=== PATIENT | male | born 1935 | race Caucasian/White ===

== ENCOUNTER 2017-01-18 09:42 | Outpatient (CLI) | payer OTHER | END 2017-01-18 19:17 | disposition home or self-care (01) | LOC: SMI 09:42 | PROVIDERS: ATTEND Psychiatry & Neurology Neurology | DX: G91.9 Hydrocephalus, unspecified (principal); G93.0 Cerebral cysts; R27.0 Ataxia, unspecified; R53.1 Weakness; W19.XXXA Unspecified fall, initial encounter; Y93.89 Activity, other specified; Y92.89 Other specified places as the place of occurrence of the external cause; Y99.8 Other external cause status | CPT/HCPCS: 70551; 72141 ==

== ENCOUNTER 2019-01-09 18:40 | Inpatient (IN) | payer OTHER, MEDICAID ==
[~2019-01-09] VITALS: Ht 167.6 cm; Wt 59.9 kg
[2019-01-09 18:47] VITALS: BP_SYST 141
--- NOTE | 2019-01-09 19:10 | NUR ---
Patient to ER bed 02 to gown for evaluation. Side rails up.
--- NOTE | 2019-01-09 19:15 | NUR ---
Patient brought to ER via ambulance BLS from [facility] for complaint of abnormal labs. Per report, patient's sodium levels have been 129 x2 days and decreased urine output x2 days. Patient is at risk for falls. AOx1. No acute distress noted.
[2019-01-09 19:17] LABS: BASOPHILS # (AUTO) 0.1 K/uL (0.0-0.2); BASOPHILS % (AUTO) 0.9 % (0.0-2.0); EOSINOPHILS # (AUTO) 0.2 K/uL (0.0-0.4); EOSINOPHILS % (AUTO) 3.6 % (0.0-4.0); HEMATOCRIT 41.6 % (36-54); LYMPHOCYTES # (AUTO) 1.9 K/uL (1.0-5.5); LYMPHOCYTES % (AUTO) 27.3 % (20.5-51.5); MEAN CORPUSCULAR HEMOGLOBIN 30 pg (27-31); MEAN CORPUSCULAR HGB CONC 34 % (32-36); MEAN CORPUSCULAR VOLUME 90 fL (79.0-98.0); MONOCYTES # (AUTO) 0.7 K/uL (0.0-1.0); MONOCYTES % (AUTO) 10.7 % (1.7-9.3); NEUTROPHILS # (AUTO) 3.9 K/uL (1.8-7.7); NEUTROPHILS % (AUTO) 57.5 % (40.0-70.0); PLATELET COUNT (AUTO) 293 K/uL (130-430); RED BLOOD CELL COUNT(AUTO) 4.61 MIL/uL (4.2-6.2); RED CELL DISTRIBUTION WIDTH 13.1 % (9.0-15.0); WHITE BLOOD COUNT (AUTO) 6.8 K/uL (4.8-10.8)
--- NOTE | 2019-01-09 19:30 | NUR ---
# 18 gauge angiocath placed to RFA. Use of asceptic technique. Opsite placed over site. Blood return noted. Blood for lab drawn from site. Flushed with 10 cc of normal saline. No evidence of infiltration noted. Patient tolerated well.
--- NOTE | 2019-01-09 19:45 | NUR ---
Patient is unable to participate in end of life decisions making at this time. Per copy of POLST, patient's code status is FULL CODE, copy of POLST placed in chart.
--- NOTE | 2019-01-09 20:02 | NUR ---
ER MD Tamayo at bedside for medical evaluation.
[2019-01-09 20:04] LABS: ANION GAP 6 (5-15); CALCIUM 9.2 mg/dL (8.4-11.0); CHLORIDE 93 mmol/L (98-107); CREATININE 0.72 mg/dL (0.55-1.30); GLUCOSE 100 mg/dL (70-99); POTASSIUM 3.8 mmol/L (3.5-5.1); SODIUM SERUM 128 mmol/L (136-145); UREA NITROGEN, BLOOD 18 mg/dL (8-21)
[2019-01-09] MEDS ORDERED: NACL 0.9% 1,000 ML IV ONE (20:15)
[2019-01-09] MEDS ORDERED: AMLO5TAB4 PO (20:17)
[2019-01-09] MEDS ORDERED: DOCU250C14 PO (20:18)
[2019-01-09] MEDS ORDERED: HYDR12.55 PO (20:19)
[2019-01-09] MEDS ORDERED: LACT1CAP69 PO (20:20)
[2019-01-09] MEDS ORDERED: LOSA50TA3 PO (20:21)
[2019-01-09] MEDS ORDERED: LACT10SO7 PO (20:21)
[2019-01-09] MEDS ORDERED: SODIUM CHLORIDE TAB PO (20:25)
--- NOTE | 2019-01-09 20:30 | NUR ---
IVF infusing with no s/s of infiltration at this time. Will cont to monitor.
--- NOTE | 2019-01-09 20:35 | NUR ---
Patient will be admitted to care of DR. KENYON. Admitted to MED SURG unit. Will go to room 135. Summary report printed. Report will be given at bedside.
--- NOTE | 2019-01-09 21:07 | NUR ---
ADMISSION: The patient, FREDDIE SYED, 83 y/o, M admitted by SALVADOR KENYON MD,with the diagnosis of FLANK PAIN , HYPONATREMIA , WEIGHT LOSS , to room 113 B ,PT is confused , vietnamese speaking .
--- NOTE | 2019-01-09 21:15 | NUR ---
INITIAL NOTE RECEIVED PATIENT AWAKE, ALERT, VERBAL RESPONSIVE BUT SPEAKS ONLY [place]. NO SOB NOTED. DENIES ANY PAIN OR N/V AT THIS TIME. ROOM AIR. INCONTINENT. SKIN INTACT AND NO PERIPHERAL EDEMA NOTED. PATIENT ABLE TO FEED HIMSELF WITH PUDDING AND JELLO. TOLERATING FLUIDS WELL. CARE AND MONITORING WILL BE PROVIDED PER PROTOCOL. CALL LIGHT WITHIN REACH. BED ALARM ON AND AT LOWEST POSITION AT ALL TIMES. ASSESSMENT DONE. NEEDS ATTENDED. KEPT WARM AND COMFORTABLE.
[2019-01-09 21:16] VITALS: BP_SYST 152
[2019-01-09] MEDS: NACL 0.9% 1,000 ML IV SCH (21:46)
--- NOTE | 2019-01-09 21:46 | NUR ---
IVF STARTED IVF STARTED ORDERED. GIVEN PATIENT ANOTHER JELLO AND FINISHED IT. URINE INCONTINENCE. INCONTINENCE CARE DONE. APPLIED BARRIER CREAM. REPOSITIONED. PATIENT TENDS TO LEAN ON HIS LEFT SIDE MORE. KEPT CLEAN, DRY AND COMFORTABLE.
--- NOTE | 2019-01-09 23:30 | NUR ---
RN NOTE PATIENT STILL AWAKE BUT NO COMPLAINTS. REPOSITIONED. KEPT WARM AND COMFORTABLE.
--- NOTE | 2019-01-10 00:35 | NUR ---
CONSULTATION PAGED/CALLED Reason for Consultation: Decreased urine output Person Who was Notified: Theresa Consulting Physician: Tino Dumont Hydroelectric Station Operator Specialty: Urology Ordering Physician: Don
--- NOTE | 2019-01-10 01:10 | NUR ---
RN NOTE PATIENT SLEEPING AT THIS TIME. NO SOB OR GRIMACING NOTED. NPO AFTER MN.
[2019-01-10 01:40] VITALS: BP_SYST 161
[2019-01-10 02:00] VITALS: BP_SYST 148
--- NOTE | 2019-01-10 04:00 | NUR ---
RN NOTE ASLEEP, MOVES OCCASIONALLY. NO DISTRESS NOTED. IVF INFUSING.
[2019-01-10 06:12] LABS: HEMATOCRIT 38.8 % (36-54); HEMOGLOBIN 13.3 g/dL (14.0-18.0); MEAN CORPUSCULAR HEMOGLOBIN 30 pg (27-31); MEAN CORPUSCULAR HGB CONC 34 % (32-36); MEAN CORPUSCULAR VOLUME 89 fL (79.0-98.0); PLATELET COUNT (AUTO) 234 K/uL (130-430); RED BLOOD CELL COUNT(AUTO) 4.37 MIL/uL (4.2-6.2); RED CELL DISTRIBUTION WIDTH 12.7 % (9.0-15.0); WHITE BLOOD COUNT (AUTO) 16.9 K/uL (4.8-10.8)
--- NOTE | 2019-01-10 06:31 | NUR ---
END NOTE AFEBRILE. VS STABLE. NO SOB OR GRIMACING THROUGHOUT THE NIGHT. NPO AFTER MIDNIGHT. CT ABD/PELVISE AND AM LABS TODAY. IVF INFUSING. INCONTINENCE CARE DONE. REPOSITIONED. HEELS OFF BED. CARE AND MONITORING PROVIDED PER PROTOCOL. CALL LIGHT WITHIN REACH. BED ALARM ON AND AT LOWEST POSITION AT ALL TIMES. NEEDS ATTENDED. REPOSITIONED. KEPT WARM AND COMFORTABLE.
[2019-01-10 07:01] LABS: ALANINE AMINOTRANSFERASE 12 U/L (12-78); ALBUMIN 3.1 g/dL (3.4-4.8); ANION GAP 5 (5-15); ASPARTATE AMINOTRANSFERASE 14 U/L (10-37); CALCIUM 8.4 mg/dL (8.4-11.0); CHLORIDE 97 mmol/L (98-107); CHOLESTEROL 146 mg/dL (<200); CREATININE 0.61 mg/dL (0.55-1.30); GLUCOSE 97 mg/dL (70-99); HDL CHOLESTEROL 47 mg/dL (>45); LDL CHOLESTEROL 89 mg/dL (<100); SODIUM SERUM 129 mmol/L (136-145); TOTAL BILIRUBIN 0.6 mg/dL (0.0-1.0); TRIGLYCERIDES 50 mg/dL (30-150); UREA NITROGEN, BLOOD 13 mg/dL (8-21)
[2019-01-10 07:11] LABS: POTASSIUM 2.6 mmol/L (3.5-5.1)
--- NOTE | 2019-01-10 07:28 | NUR ---
OPENING NOTE Patient resting in the bed. No acute distress. Skin warm and dry to touch. IV intact to RFA, no redness, no swelling, no drainage. On NS at 70ml/hr, infusing well. Safety measure maintained. Call light within reached. Bed locked in low position, side rails up, bed alarm on. Will continue to monitor.
[2019-01-10 07:50] VITALS: BP_SYST 126
[2019-01-10] MEDS ORDERED: POTASSIUM CHLORIDE 20 MEQ/PKT PACKET PO ONE (08:15)
--- NOTE | 2019-01-10 08:48 | NUR ---
Nutrition Update Teo Scale 14 noted. Pt admitted for flank pain, hyponatremia, wt loss. Diet: mechanical soft BMI: 21.4 kg/m2 RD to follow per nutrition care standards.
[2019-01-10 08:49] LABS: BAND % (MANUAL) 4 % (0-6); BASOPHILS % (MANUAL) 0 % (0-2); EOSINOPHILS % (MANUAL) 0 % (0-7); LYMPHOCYTES % (MANUAL) 2 % (20-46); MONOCYTES % (MANUAL) 4 % (0-11)
--- NOTE | 2019-01-10 08:50 | NUR ---
CONSULTATION PAGED/CALLED Reason for Consultation: ELEVATED WBC Person Who was Notified: SPOKE WITH CHAO FROM EXCHANGE . Consulting Physician: Tier Truck Driver Specialty: ID Ordering Physician:
[2019-01-10] MEDS: LEVOFLOXACIN 250 MG/D5W 50 ML IV SCH (08:56)
--- NOTE | 2019-01-10 09:49 | NUR ---
NANDINI MALDONADO CALLED BACK Received the call back from Dr. Mayer. Reported the reason for consult is elevated WBC, the WBC=16.9 today and yesterday WBC=6.8. Dr. Mayer stated"will come to see the patient today."
--- NOTE | 2019-01-10 11:00 | NUR ---
ROUND Patient resting in the bed. No acute distress. IV intact, IVF infusing well. Safety measure maintained. Call light within reached. Bed locked in low position, side rails up, bed alarm on. Continue to monitor.
[2019-01-10 11:21] VITALS: BP_SYST 133
[2019-01-10] MEDS: NACL 0.9% 1,000 ML IV SCH (13:35)
[2019-01-10 15:39] VITALS: BP_SYST 132
--- NOTE | 2019-01-10 16:05 | NUR ---
SEEN AND EXAMINED BY DR. ROLAND'S PA YOSHI, ANKUR WITH ORDER RECEIVED Per Ankur patient bladder soft when palpate but CT of abdomen shown full bladder. Reported to Ankur patient void after CT and patient is incontinent. Ankur with order for condom cath to check the output. Order noted and carry out.
--- NOTE | 2019-01-10 18:20 | NUR ---
CLOSING NOTE Patient resting in the bed. No acute distress. Skin warm and dry to touch. IV intact to RFA, no redness, no swelling, no drainage. On NS at 70ml/hr, infusing well. All need met and attended. Safety measure maintained. Call light within reached. Bed locked in low position, side rails up, bed alarm on. Will endorse to night nurse.
--- NOTE | 2019-01-10 19:30 | NUR ---
INITIAL NOTE RECEIVED CARE OF PT. PT IS AWAKE, ALERT, AND IS VERBALLY RESPONSIVE, PT SPEAKS ONLY ERITREAN. BREATHING IS UNLABORED TO ROOM AIR, NO SOB NOTED. DENIES ANY PAIN OR N/V AT THIS TIME. ROOM AIR. ASSISTED RN, JUAN, TO APPLY CONDOM CATHETER FOR URINE OUTPUT MONITORING. SKIN INTACT AND NO PERIPHERAL EDEMA NOTED. IVF ARE INFUSING AT ORDERED RATE. CARE AND MONITORING WILL BE PROVIDED PER PROTOCOL. CALL LIGHT WITHIN REACH. BED ALARM ON AND AT LOWEST POSITION AT ALL TIMES. SIDE RAILS UPX3, CLOSE TO NURSES STATION. ASSESSMENT DONE. NEEDS ATTENDED. WILL MONITOR.
[2019-01-10 20:00] VITALS: BP_SYST 128
--- NOTE | 2019-01-10 21:20 | NUR ---
RN NOTE: PT AWAKE IN BED, CALM AFFECT, NO S/S OF DISTRESS. PT DENIES ANY NEEDS AT THIS TIME. SAFETY PRECAUTIONS REMAIN IN PLACE, CALL LIGHT IS WITH PT. WILL MONITOR.
--- NOTE | 2019-01-10 23:30 | NUR ---
CONDOM CATH REAPPLIED PT REMOVED CONDOM CATHETER. PT EDUCATED REGARDING NEED FOR MONITORING URINE OUTPUT AND NEED FOR CONDOM CATHETER. PT CONFUSED AND DID NOT VERBALIZE UNDERSTANDING. CONDOM CATHETER REAPPLIED, PT TOLERATED WELL. SAFETY MAINTAINED. WILL MONITOR.
--- NOTE | 2019-01-11 | NUR ---
NPO NPO CONE PLACED AT BEDSIDE FOR PROCEDURE. EDUCATED PT ON REASON FOR NPO STATUS.
[2019-01-11 00:13] VITALS: BP_SYST 131
[2019-01-11] MEDS: NACL 0.9% 1,000 ML IV SCH ×2 (01:05→17:13)
--- NOTE | 2019-01-11 02:05 | NUR ---
RN NOTE: PT RESTING IN BED WITH EYES CLOSED. VISIBLE SYMMETRICAL RISE AND FALL OF CHEST TO ROOM AIR, NO SOB NOTED. NO S/S OF ACUTE DISTRESS. NO SIGN OF PAIN OR DISCOMFORT AT THIS TIME. IVF ARE INFUSING AT ORDERED RATE. CONDOM CATHETER IS IN PLACE AND INTACT, DRAINING WELL TO GRAVITY. SAFETY AND FALL PRECAUTIONS OBSERVED. WILL MONITOR.
--- NOTE | 2019-01-11 07:07 | NUR ---
CLOSING NOTE PT RESTING IN BED, NO S/S OF DISTRESS, BREATHING IS UNLABORED TO ROOM AIR. HAVE CALLED PT'S LEGAL GUARDIAN STEVE AT , PHONE RINGS WITH NO ANSWERING MACHINE. HAVE TRIED MULTIPLE TIMES. ALSO TRIED [facility] AT , PHONE ALSO RINGS AND NO ANSWERING MACHINE. WILL ENDORSE TO DAY SHIFT RN TO COMPLETE CONTRAST QUESTIONAIRE AND CONSENT FOR ABDOMEN/PELVIS CT WITH AND WITHOUT CONTRAST. ALL NEEDS MET DURING SHIFT. SAFETY MAINTAINED. WILL ENDORSE TO DAY SHIFT RN.
--- NOTE | 2019-01-11 07:24 | NUR ---
OPENING NOTE Patient resting in the bed. No acute distress. Skin warm and dry to touch. IV intact to RFA, no redness, no swelling, no drainage. On NS at 70ml/hr, infusing well. Condom cath intact, drain gravity with yellow urine. Safety measure maintained. Call light within reached. Bed locked in low position, side rails up, bed alarm on. Will continue to monitor.
[2019-01-11 07:55] VITALS: BP_SYST 144
[2019-01-11] MEDS: LEVOFLOXACIN 250 MG/D5W 50 ML IV SCH (09:00)
--- NOTE | 2019-01-11 10:25 | NUR ---
CONDOM CATH OUT Noted Condom cath out, replaced a new one and connected to drainage bag. Safety measure maintained. Call light within reached. Bed locked in low position, side rails up, bed alarm on. Will continue to monitor.
--- NOTE | 2019-01-11 10:55 | NUR ---
SEEN AND EXAMINED BY NANDINI MALDONADO WITH ORDER RECEIVED.
[2019-01-11 11:17] LABS: BASOPHILS % (AUTO) 0.6 % (0.0-2.0); EOSINOPHILS # (AUTO) 0.1 K/uL (0.0-0.4); EOSINOPHILS % (AUTO) 0.8 % (0.0-4.0); HEMATOCRIT 41.3 % (36-54); HEMOGLOBIN 14.1 g/dL (14.0-18.0); LYMPHOCYTES # (AUTO) 0.9 K/uL (1.0-5.5); LYMPHOCYTES % (AUTO) 13.8 % (20.5-51.5); MEAN CORPUSCULAR HEMOGLOBIN 31 pg (27-31); MEAN CORPUSCULAR HGB CONC 34 % (32-36); MEAN CORPUSCULAR VOLUME 90 fL (79.0-98.0); MONOCYTES # (AUTO) 0.7 K/uL (0.0-1.0); MONOCYTES % (AUTO) 10.1 % (1.7-9.3); NEUTROPHILS # (AUTO) 5.1 K/uL (1.8-7.7); NEUTROPHILS % (AUTO) 74.7 % (40.0-70.0); PLATELET COUNT (AUTO) 193 K/uL (130-430); RED CELL DISTRIBUTION WIDTH 13.1 % (9.0-15.0); WHITE BLOOD COUNT (AUTO) 6.8 K/uL (4.8-10.8)
--- NOTE | 2019-01-11 11:38 | NUR ---
SECOND CALLED THE PUBLIC GUARDIAN REGARDING THE CONSENT FOR CT WITH CONTRAST Left the message of Jennifer Gibbs, case manger of the patient and waited to call back.
[2019-01-11 11:39] LABS: ALANINE AMINOTRANSFERASE 15 U/L (12-78); ALBUMIN 3.1 g/dL (3.4-4.8); ANION GAP 8 (5-15); ASPARTATE AMINOTRANSFERASE 15 U/L (10-37); CALCIUM 8.1 mg/dL (8.4-11.0); CHLORIDE 100 mmol/L (98-107); GLUCOSE 83 mg/dL (70-99); POTASSIUM 3.8 mmol/L (3.5-5.1); SODIUM SERUM 134 mmol/L (136-145); TOTAL BILIRUBIN 0.3 mg/dL (0.0-1.0); UREA NITROGEN, BLOOD 8 mg/dL (8-21)
[2019-01-11 12:45] VITALS: BP_SYST 143
--- NOTE | 2019-01-11 16:10 | NUR ---
CONDOM CATH OUT Noted Condom cath out, replaced a new one and connected to drainage bag. Educated patient not to remove the condom cath, unable due to patient confusion. Safety measure maintained. Call light within reached. Bed locked in low position, side rails up, bed alarm on. Will continue to monitor.
[2019-01-11 16:40] VITALS: BP_SYST 147
--- NOTE | 2019-01-11 16:53 | NUR ---
Dietitian Recommendations * Recommend continuing mechanical soft diet JOSE, RD Please refer to Nutrition Assessment for details. Addendum: 01/11/19 at [address] Amended: Links added. Addendum: 01/11/19 at [address] ENTERED IN ERROR. PLEASE DISREGARD NOTE.
--- NOTE | 2019-01-11 16:55 | NUR ---
CONSENT OF CT ABDOMEN/PELVIS WITH CONTRAST OBTAINED Call public guardian again. Told that I need the consent for the procedure and insurance case manager Jennifer never call back. Able to talk to another public guardian-Breanna Fay and obtain the telephone consent for CT abdomen/pelvis with contrast, witness with MARIANA Dang. Also confirmed the patient's public guardian is Jennifer Najera and not working today.
--- NOTE | 2019-01-11 16:56 | NUR ---
Dietitian Recommendations * Recommend continuing mechanical soft diet * Recommend snacks w/ meals * Recommend encourage increase PO intakes LP, RD Please refer to Nutrition Assessment for details. Addendum: 01/11/19 at [address] Amended: Links added.
[2019-01-11] MEDS ORDERED: IOHEXOL 100 ML IV ONE (17:41)
--- NOTE | 2019-01-11 17:41 | NUR ---
OFF UNIT TO RADIOLOGY DEPT Patient off unit to radiology dept for CT of abdomen/pelvis via bed in stable condition. IV intact, patent. Condom cath intact.
--- NOTE | 2019-01-11 18:06 | NUR ---
BACK TO UNIT FROM RADIOLOGY DEPT VIA BED IN STABLE CONDITION.
--- NOTE | 2019-01-11 18:58 | NUR ---
CLOSING NOTE Patient resting in the bed. No acute distress. Skin warm and dry to touch. IV intact to RFA, no redness, no swelling, no drainage. On NS at 70ml/hr, infusing well. Condom cath intact, drain gravity with yellow urine. All needs met. Safety measure maintained. Call light within reached. Bed locked in low position, side rails up, bed alarm on. Will endorse to night nurse.
[2019-01-11 19:01] LABS: BILIRUBIN,URINE NEGATIVE (NEGATIVE); BLOOD, URINE 2+ (NEGATIVE); CLARITY/URINE HAZY (CLEAR); COLOR,URINE YELLOW (YELLOW); GLUCOSE,URINE NEGATIVE (NEGATIVE); KETONES,URINE NEGATIVE (NEGATIVE); LEUKOCYTE ESTERASE ,URINE 3+ (NEGATIVE); NITRITE, URINE NEGATIVE (NEGATIVE); PH,URINE 7.5 (5.0-8.0); PROTEIN URINE NEGATIVE (NEGATIVE); UROBILINOGEN,URINE 0.2 (0.2-1.0)
--- NOTE | 2019-01-11 19:32 | NUR ---
INITIAL NOTE RECEIVED CARE OF PT. PT IS AWAKE, ALERT, AND IS VERBALLY RESPONSIVE, ARABIC SPEAKING ONLY. BREATHING IS UNLABORED TO ROOM AIR, NO SOB NOTED. PT DENIES ANY PAIN OR N/V AT THIS TIME. CONDOM CATHETER IS INTACT AND DRAINING WELL TO GRAVITY. SKIN INTACT. IVF ARE INFUSING AT ORDERED RATE, NO SIGN OF INFILTRATION AT IV SITE. CARE AND MONITORING WILL BE PROVIDED PER PROTOCOL. CALL LIGHT WITHIN REACH. BED ALARM ON AND AT LOWEST POSITION AT ALL TIMES. SIDE RAILS UPX3, CLOSE TO NURSES STATION. ASSESSMENT DONE. NEEDS ATTENDED. WILL MONITOR.
[2019-01-11 20:00] VITALS: BP_SYST 136
[2019-01-11 20:00] LABS: RBC,URINE 20-50 /HPF (0-3); WBC,URINE 20-50 /HPF (0-3)
[2019-01-11 20:01] LABS: BACTERIA,URINE FEW /HPF (None Seen); MUCUS,URINE None Seen /LPF (None Seen)
--- NOTE | 2019-01-11 23:00 | NUR ---
RN ROUNDS: PT RESTING IN BED, EYES ARE CLOSED, VISIBLE SYMMETRICAL RISE AND FALL OF CHEST TO ROOM AIR. IVF ARE INFUSING ORDERED. NO S/S OF PAIN OR DISCOMFORT. SAFETY PRECAUTIONS ARE IN PLACE: BED IS LOCKED IN LOWEST POSITION, SIDE RAILS UP X3, CALL LIGHT WITH PT, BED ALARM ON, CLOSE TO NURSES STATION. WILL MONITOR.
[2019-01-12 00:55] VITALS: BP_SYST 139
--- NOTE | 2019-01-12 01:10 | NUR ---
SLEEPING PT RESTING IN BED WITH EYES CLOSED. RISE AND FALL OF CHEST BILATERALLY, SOFT SNORE CAN BE HEARD. MOVEMENT NOTED AT INTERVALS. PT APPEARS COMFORTABLE AT THIS TIME. NO S/S OF DISTRESS. SAFETY PRECAUTIONS ARE IN PLACE. WILL MONITOR.
--- NOTE | 2019-01-12 03:34 | NUR ---
RN NOTE: PT RESTING IN BED WITH EYES CLOSED. VISIBLE SYMMETRICAL RISE AND FALL OF CHEST TO ROOM AIR, NO SOB NOTED. NO S/S OF ACUTE DISTRESS. NO SIGN OF PAIN OR DISCOMFORT AT THIS TIME. IVF ARE INFUSING AT ORDERED RATE. SAFETY AND FALL PRECAUTIONS OBSERVED. WILL MONITOR.
--- NOTE | 2019-01-12 05:20 | NUR ---
CONDOM CATH REAPPLIED PT REMOVED CONDOM CATHETER. INCONTINENCE CARE RENDERED WITH ASSISTANCE FROM JATIN GUDINO. CONDOM CATHETER REAPPLIED, PT TOLERATED WELL. PT REPOSITIONED WITH PILLOW SUPPORT. FALL AND SAFETY PRECAUTIONS MAINTAINED. WILL MONITOR.
[2019-01-12] MEDS: NACL 0.9% 1,000 ML IV SCH ×2 (06:02→20:00)
--- NOTE | 2019-01-12 06:31 | NUR ---
CLOSING NOTE PT IS RESTING IN BED. BREATHING IS UNLABORED TO ROOM AIR, NO SOB NOTED. NO SIGN OF PAIN. CONDOM CATHETER IS INTACT AND DRAINING WELL TO GRAVITY. SKIN INTACT. IVF ARE INFUSING AT ORDERED RATE, NO SIGN OF INFILTRATION AT IV SITE. CARE AND MONITORING HAS BE PROVIDED PER PROTOCOL. CALL LIGHT WITHIN REACH. BED ALARM ON AND AT LOWEST POSITION AT ALL TIMES. SIDE RAILS UPX3, CLOSE TO NURSES STATION. ASSESSMENT DONE. ALL NEEDS MET DURING SHIFT. WILL MONITOR UNTIL PT CARE IS ENDORSED TO DAY SHIFT RN.
[2019-01-12 06:48] LABS: BASOPHILS # (AUTO) 0.1 K/uL (0.0-0.2); BASOPHILS % (AUTO) 0.9 % (0.0-2.0); EOSINOPHILS # (AUTO) 0.2 K/uL (0.0-0.4); EOSINOPHILS % (AUTO) 2.8 % (0.0-4.0); HEMATOCRIT 41.5 % (36-54); HEMOGLOBIN 14.4 g/dL (14.0-18.0); LYMPHOCYTES # (AUTO) 1.5 K/uL (1.0-5.5); LYMPHOCYTES % (AUTO) 23.6 % (20.5-51.5); MEAN CORPUSCULAR HEMOGLOBIN 31 pg (27-31); MEAN CORPUSCULAR HGB CONC 35 % (32-36); MEAN CORPUSCULAR VOLUME 89 fL (79.0-98.0); MONOCYTES % (AUTO) 15.4 % (1.7-9.3); NEUTROPHILS # (AUTO) 3.7 K/uL (1.8-7.7); NEUTROPHILS % (AUTO) 57.3 % (40.0-70.0); PLATELET COUNT (AUTO) 188 K/uL (130-430); RED BLOOD CELL COUNT(AUTO) 4.66 MIL/uL (4.2-6.2); RED CELL DISTRIBUTION WIDTH 12.7 % (9.0-15.0); WHITE BLOOD COUNT (AUTO) 6.4 K/uL (4.8-10.8)
--- NOTE | 2019-01-12 07:15 | NUR ---
AM ROUNDS: PATIENT AWAKE DURING ROUNDS.AOX1.RECEIVED REPORT FROM IRIS LUGO NURSE.CONDOM CATH DRAINING TO YELLOW URINE. NO ACUTE DISTRESS. BED LOCKED AT LOWEST POSITION. BED ALARM ON.
[2019-01-12 07:30] VITALS: BP_SYST 159
[2019-01-12 07:51] LABS: ALANINE AMINOTRANSFERASE 18 U/L (12-78); ALBUMIN 3.1 g/dL (3.4-4.8); ANION GAP 10 (5-15); ASPARTATE AMINOTRANSFERASE 17 U/L (10-37); CALCIUM 8.8 mg/dL (8.4-11.0); CHLORIDE 97 mmol/L (98-107); GLUCOSE 73 mg/dL (70-99); POTASSIUM 3.5 mmol/L (3.5-5.1); SODIUM SERUM 131 mmol/L (136-145); TOTAL BILIRUBIN 0.3 mg/dL (0.0-1.0); UREA NITROGEN, BLOOD 10 mg/dL (8-21)
[2019-01-12] MEDS: LEVOFLOXACIN 250 MG/D5W 50 ML IV SCH (08:37)
--- NOTE | 2019-01-12 09:26 | NUR ---
RN ROUNDS: RESTING. NOT IN ANY DISTRESS.
--- NOTE | 2019-01-12 11:52 | NUR ---
RN ROUNDS: NO ACUTE DISTRESS. CONDOM CATHETER INTACT.
[2019-01-12 12:45] VITALS: BP_SYST 174
--- NOTE | 2019-01-12 13:22 | NUR ---
PAGED: CALLED DR KENYON PHONE NUMBER [phone] AND LEFT MESSAGE TO VERIFY HOME MEDICATION.
--- NOTE | 2019-01-12 13:23 | NUR ---
RN ROUNDS: PATIENT RESTING. NOT IN ANY DISTRESS.
--- NOTE | 2019-01-12 14:30 | NUR ---
Case mgt: I returned call to Briana in admissions at [facility] at [phone] (cell) and [phone] facility ph#--she said to call her if pt discharges over the weekend-they still have his bed available--pt is not currently isolation--RIN PEÑA
[2019-01-12 14:31] VITALS: BP_SYST 152
--- NOTE | 2019-01-12 16:20 | NUR ---
RN ROUNDS; RESTING. STABLE.
--- NOTE | 2019-01-12 16:24 | NUR ---
Discharge Planning: [facility] faxed pt referral to [facility] (f [phone] p [phone]) CM to follow up on weekend.3 Addendum: 01/12/19 at 1701 by Denise Gómez DP Per Briana at [facility] (f [phone] p [phone]) patient accepted to room 23. Facility request patient be transferred out no later than 3:00pm, they prefer a morning discharge.
[2019-01-12 16:32] VITALS: BP_SYST 152
--- NOTE | 2019-01-12 17:50 | NUR ---
CONDOM CATH: PATIENT PULLED CONDOM CATHETER PER ODD PIECE CHECKER.
--- NOTE | 2019-01-12 18:23 | NUR ---
END OF SHIFT: WILL ENDORSED TO INCOMING NIGHT NURSE TO PUT A NEW CONDOM CATHETER. NO ACUTE DISTRESS. CALL LIGHT WITH IN REACH. BED LOCKED AT LOWEST POSITION. BED ALARM ON. CONTINUE TO MONITOR.
--- NOTE | 2019-01-12 19:40 | NUR ---
INITIAL NOTE AT INITIAL ASSESSMENT, PATIENT IS RESTING IN BED, STABLE, NO SIGNS OF RESPIRATORY DISTRESS. PATIENT VERBALIZES NO PAIN. PLAN OF CARE FOR THE EVENING IS COMMUNICATED WITH THE PATIENT. PATIENT IS CONFUSED BUT CLOSE TO THE NURSING STATION FOR INCREASED OBSERVATION. BED IS LOCKED, ALARMED, AND AT THE LOWEST SETTING. FALL AND SAFETY PRECAUTIONS WILL BE IN PLACE THROUGHOUT THE SHIFT.
[2019-01-12 20:00] VITALS: BP_SYST 150
--- NOTE | 2019-01-12 21:40 | NUR ---
NOTE PATIENT IS RESTING IN BED, STABLE, NO SIGNS OF RESPIRATORY DISTRESS. CALL LIGHT IS WITHIN REACH. BED IS LOCKED, ALARMED, AND AT THE LOWEST LEVEL.
--- NOTE | 2019-01-12 23:40 | NUR ---
NOTE PATIENT IS SLEEPING, STABLE, NO SIGNS OF RESPIRATORY DISTRESS. BED IS LOCKED, ALARMED, AND AT THE LOWEST LEVEL.
[2019-01-13 00:30] VITALS: BP_SYST 143
--- NOTE | 2019-01-13 01:40 | NUR ---
NOTE PATIENT IS RESTING IN BED, STABLE, NO SIGNS OF RESPIRATORY DISTRESS. BED IS LOCKED, ALARMED, AND AT THE LOWEST LEVEL.
--- NOTE | 2019-01-13 03:40 | NUR ---
NOTE PATIENT IS SLEEPING, STABLE, NO SIGNS OF RESPIRATORY DISTRESS. BED IS LOCKED, ALARMED, AND AT THE LOWEST LEVEL.
--- NOTE | 2019-01-13 05:40 | NUR ---
NOTE PATIENT IS SLEEPING, STABLE, NO SIGNS OF RESPIRATORY DISTRESS. BED IS LOCKED, ALARMED, AND AT THE LOWEST LEVEL.
--- NOTE | 2019-01-13 06:55 | NUR ---
CLOSING NOTE PATIENT REFUSED NEW IV PLACEMENT THROUGHOUT THE NIGHT DESPITE EDUCATIONAL EFFORTS. AT THIS TIME, HE IS RESTING IN BED, STABLE, NO SIGNS OF RESPIRATORY DISTRESS. CALL LIGHT IS PLACED WITHIN REACH. BED IS LOCKED, ALARMED, AND AT THE LOWEST LEVEL. WILL CONTINUE TO MONITOR UNTIL SHIFT REPORT IS GIVEN AT BEDSIDE TO AM NURSE.
[2019-01-13 07:00] LABS: ALANINE AMINOTRANSFERASE 16 U/L (12-78); ANION GAP 7 (5-15); ASPARTATE AMINOTRANSFERASE 14 U/L (10-37); CALCIUM 8.5 mg/dL (8.4-11.0); CHLORIDE 97 mmol/L (98-107); CREATININE 0.66 mg/dL (0.55-1.30); GLUCOSE 83 mg/dL (70-99); POTASSIUM 3.4 mmol/L (3.5-5.1); SODIUM SERUM 129 mmol/L (136-145); TOTAL BILIRUBIN 0.3 mg/dL (0.0-1.0); UREA NITROGEN, BLOOD 10 mg/dL (8-21)
[2019-01-13 07:14] LABS: EOSINOPHILS # (AUTO) 0.2 K/uL (0.0-0.4); LYMPHOCYTES # (AUTO) 1.2 K/uL (1.0-5.5); MEAN CORPUSCULAR HGB CONC 36 % (32-36); MEAN CORPUSCULAR VOLUME 88 fL (79.0-98.0); MONOCYTES # (AUTO) 0.8 K/uL (0.0-1.0)
--- NOTE | 2019-01-13 07:30 | NUR ---
Opening note Patient resting in bed at this time, A/Ox2, no SOB. No complaints of pain. IV patent, intact, and infusing fluids as ordered. No adverse side effects noted. No infiltration noted. On aspiration, and safety precautions, HOB kept elevated, bed alarm on, 3 side rails up, bed in lowest position. Educated patient on the call light system, patient verbalized understanding. Patient in stable condition. Will continue to monitor.
[2019-01-13 07:41] LABS: HEMATOCRIT 38.6 % (36-54); HEMOGLOBIN 13.7 g/dL (14.0-18.0); LYMPHOCYTES % (AUTO) 16.3 % (20.5-51.5); MEAN CORPUSCULAR HEMOGLOBIN 31 pg (27-31); MONOCYTES % (AUTO) 11.4 % (1.7-9.3); NEUTROPHILS % (AUTO) 69.1 % (40.0-70.0); PLATELET COUNT (AUTO) 194 K/uL (130-430); RED CELL DISTRIBUTION WIDTH 13.1 % (9.0-15.0); WHITE BLOOD COUNT (AUTO) 7.2 K/uL (4.8-10.8)
[2019-01-13 07:42] LABS: BASOPHILS # (AUTO) 0.1 K/uL (0.0-0.2); EOSINOPHILS % (AUTO) 2.2 % (0.0-4.0)
[2019-01-13 08:30] VITALS: BP_SYST 147
[2019-01-13] MEDS: LEVOFLOXACIN 250 MG/D5W 50 ML IV SCH (08:52)
--- NOTE | 2019-01-13 09:30 | NUR ---
Medications Morning medication given as ordered. Tolerated well. No adverse side effects noted. Patient in stable condition.
[2019-01-13] MEDS: NACL 0.9% 1,000 ML IV SCH ×2 (10:18→14:21)
--- NOTE | 2019-01-13 11:14 | NUR ---
DC planning: Reviewed case-I do not see consult -MD prog note yet from Dr. Dumont, urology-(consult ordered 01/09/19). I called nurse Patricia-she will call Dr. Dumont-I explained [facility] has a bed and do not want to delay discharge- will f/u for dc planning back to snf-RIN PEÑA
--- NOTE | 2019-01-13 11:30 | NUR ---
Rounds Patient resting in bed, no complaints of pain. Iv patent, intact, and infusing fluids as ordered. no adverse side effects noted. Condom cath draining to gravity, yellow urine noted.
[2019-01-13 11:38] VITALS: BP_SYST 148
--- NOTE | 2019-01-13 11:52 | NUR ---
PAGED PAGED AT [phone] SPOKE WITH JOSH.
--- NOTE | 2019-01-13 13:20 | NUR ---
PAGED PAGED [facility] AT [phone] SPOKE WITH SLIME.
--- NOTE | 2019-01-13 13:30 | NUR ---
UC result Urine culture positive for Poteus Mirabilis ESBL. Dr. Mayer made aware, new orders noted. Patient placed on contact isolation precautions, reason explained to patient. patient unable to verbalize understanding. poor concentration noted. Addendum: 01/13/19 at 1426 by Kye Shirley RN Proteus Mirabilis*
[2019-01-13] MEDS ORDERED: SULFAMETHOXAZOLE/TRIMETHOPR DS 1 TABLET PO ONE (13:45)
--- NOTE | 2019-01-13 14:31 | NUR ---
Case mgt: I rec'd call from nurse Patricia-pt's micro report came back ESBL + for urine--I faxed updated micro and medication list to [facility] and called Briana at SNF--she was made aware pt now requires isolation for ESBL--she gave room 14B--The facility main# [phone] is not working properly, Briana is aware-She will call back with nursing ph# to call report to. [facility] BLS placed on will-call [phone]--RIN PEÑA
--- NOTE | 2019-01-13 14:50 | NUR ---
Case mt: Call report to [phone]-if no answer or general voice mail answers, then call report to [phone] per [facility] once transfer order obtained--I called Jennifer Reinaldo on face sheet at [phone] to notify of pending transfer but phone just rings-no voice mail on that ph#--Transfer packet updated with micro and med list at nursing station-RIN PEÑA
--- NOTE | 2019-01-13 15:00 | NUR ---
Rounds Patient sitting up in bed at this time, no complaints of pain. No SOB. Iv patent, intact and infusing as ordered. No adverse side effects. Condom catheter draining to gravity, good urine output noted.
[2019-01-13 15:09] VITALS: BP_SYST 152
--- NOTE | 2019-01-13 15:49 | NUR ---
Rec'd transfer order to [facility]--[facility] BLS to [facility] pt at 6:00pm tonight--nurse Harshad wade. RN
[2019-01-13 16:33] VITALS: BP_SYST 149
[2019-01-13] MEDS ORDERED: SULF1TAB48 PO (16:53)
--- NOTE | 2019-01-13 17:00 | NUR ---
Unable to reach responsible constitution party Unable to notify family of discharge at this time, called em x4, no answer left voicemail, awaiting call back.
--- NOTE | 2019-01-13 17:07 | NUR ---
[facility] CALLED CALLED [facility] AT SPOKE WITH EDGARD TO PUT AMBULANCE ON WILL CALL.
--- NOTE | 2019-01-13 17:15 | NUR ---
Rounds Notified patient of transfer back to [facility], patient unable to verbalize understanding. patient in stable condition.
--- NOTE | 2019-01-13 18:33 | NUR ---
PT TRANSFERRED Report given to Angelica at [facility]. Transfer packet with Transfer Orders and Medication Reconciliation form given to EMT with report. Exitcare provided. [facility] ID band removed, replaced with ID band with pt's name and .IV catheter removed, intact and dressing applied, no active bleeding. condom catheter removed. All belongings sent with patient. Patient left floor via gurney escorted by EMT in no distress.
[2019-01-13] MEDS ORDERED: SULFAMETHOXAZOLE/TRIMETHOPR DS 1 TABLET PO SCH (21:00)
== END 2019-01-13 18:43 | DRG 871 ==
LOC: SED 18:40 → SMU 20:27
PROVIDERS: ADMIT Internal Medicine; ATTEND Internal Medicine
DX: A41.9 Sepsis, unspecified organism (principal); J69.0 Pneumonitis due to inhalation of food and vomit; E87.1 Hypo-osmolality and hyponatremia; N39.0 Urinary tract infection, site not specified; F03.90 Unspecified dementia, unspecified severity, without behavioral disturbance, psychotic disturbance, mood disturbance, and anxiety; I11.9 Hypertensive heart disease without heart failure; I48.91 Unspecified atrial fibrillation; K76.9 Liver disease, unspecified; N28.9 Disorder of kidney and ureter, unspecified; N35.919 Unspecified urethral stricture, male, unspecified site; N40.1 Benign prostatic hyperplasia with lower urinary tract symptoms; R33.8 Other retention of urine; Z74.01 Bed confinement status
CPT/HCPCS: 36415; 71045; 74160-TC; 80048; 80053; 80061; 81000-TC; 85007; 85025; 85027; 87040-TC; 87081; 87086; 87186-TC; 93005; 96360; 99285; J1956; J7030; Q9967

== ENCOUNTER 2019-02-01 18:41 | Inpatient (IN) | payer OTHER, MEDICAID ==
[~2019-02-01] VITALS: Ht 175.3 cm; Wt 61.2 kg
[~2019-02-01 18:41] MED LIST: AMLO5TAB4 PO; DOCU250C14 PO; HYDR12.55 PO; LACT10SO7 PO; LACT1CAP69 PO; LOSA50TA3 PO; SODIUM CHLORIDE TAB PO; SULF1TAB48 PO
[2019-02-01 18:44] VITALS: BP_SYST 146
--- NOTE | 2019-02-01 18:48 | NUR ---
Patient to ER bed 05 to gown for evaluation. Side rails up.
--- NOTE | 2019-02-01 18:57 | NUR ---
pt arrives from [facility]. S/p fall. Pt ia AAO x 3. Rob any pain. No visible head injuries noted. According to [facility] staff, pt ambulated to the restroom and fell in the restroom.
--- NOTE | 2019-02-01 18:58 | NUR ---
ER at bedside examining patient.
--- NOTE | 2019-02-01 19:06 | NUR ---
Care endorsed to Cheryl PEÑA. Pt remains in stable condition.
--- NOTE | 2019-02-01 19:09 | NUR ---
Medication reconciliation completed with information provided by medical record. Any prior medication reconciliation on file was reviewed and corrected.
--- NOTE | 2019-02-01 19:20 | NUR ---
Pt went to CT scan via [facility]. Tolerated well. Will cont. to monitor.
--- NOTE | 2019-02-01 19:31 | NUR ---
Pt moved to bed 04
[2019-02-01 20:26] LABS: BASOPHILS # (AUTO) 0.1 K/uL (0.0-0.2); BASOPHILS % (AUTO) 0.8 % (0.0-2.0); EOSINOPHILS # (AUTO) 0.1 K/uL (0.0-0.4); EOSINOPHILS % (AUTO) 2.3 % (0.0-4.0); HEMATOCRIT 41.4 % (36-54); HEMOGLOBIN 14.3 g/dL (14.0-18.0); LYMPHOCYTES # (AUTO) 1.6 K/uL (1.0-5.5); LYMPHOCYTES % (AUTO) 24.7 % (20.5-51.5); MEAN CORPUSCULAR HEMOGLOBIN 31 pg (27-31); MEAN CORPUSCULAR HGB CONC 35 % (32-36); MEAN CORPUSCULAR VOLUME 89 fL (79.0-98.0); MONOCYTES # (AUTO) 0.7 K/uL (0.0-1.0); MONOCYTES % (AUTO) 10.7 % (1.7-9.3); NEUTROPHILS # (AUTO) 3.9 K/uL (1.8-7.7); NEUTROPHILS % (AUTO) 61.5 % (40.0-70.0); PLATELET COUNT (AUTO) 363 K/uL (130-430); RED BLOOD CELL COUNT(AUTO) 4.65 MIL/uL (4.2-6.2); RED CELL DISTRIBUTION WIDTH 12.9 % (9.0-15.0); WHITE BLOOD COUNT (AUTO) 6.3 K/uL (4.8-10.8)
[2019-02-01 20:43] LABS: ANION GAP 7 (5-15); CALCIUM 9.2 mg/dL (8.4-11.0); CHLORIDE 95 mmol/L (98-107); GLUCOSE 91 mg/dL (70-99); POTASSIUM 3.6 mmol/L (3.5-5.1); SODIUM SERUM 130 mmol/L (136-145); UREA NITROGEN, BLOOD 16 mg/dL (8-21)
[2019-02-01 20:49] LABS: PROTHROMBIN TIME 10.4 SECS (9.5-12.5)
[2019-02-01 20:57] LABS: ALANINE AMINOTRANSFERASE 14 U/L (12-78); ALBUMIN 3.5 g/dL (3.4-4.8); ASPARTATE AMINOTRANSFERASE 12 U/L (10-37); THYROID STIMULATING HORMONE 1.27 uIu/mL (0.36-3.74); TOTAL BILIRUBIN 0.3 mg/dL (0.0-1.0)
--- NOTE | 2019-02-01 22:30 | NUR ---
PT pulled out IV twice. Started new IV on RAC.
--- NOTE | 2019-02-01 22:52 | NUR ---
ADMISSION NOTES RECEIVED PATIENT FROM ER 83 Y/O MALE FOR SYNCOPE AND HEAD TRAUMA. PATIENT ORIENTED TO ROOM ,CALL LIGHT SYSTEM, BED CONTROLS. BED IN LOWEST LOCKED POSITION WITH ALARM ON. CALL LIGHT WITH IN REACH.
--- NOTE | 2019-02-01 22:52 | NUR ---
Transfer to Tele via ACLS protocol. Licensed nurse present. IV present no signs or symptoms of infiltration.
[2019-02-01 23:01] VITALS: BP_SYST 142
[2019-02-01 23:06] LABS: BILIRUBIN,URINE NEGATIVE (NEGATIVE); BLOOD, URINE 3+ (NEGATIVE); CLARITY/URINE CLEAR (CLEAR); COLOR,URINE YELLOW (YELLOW); GLUCOSE,URINE NEGATIVE (NEGATIVE); KETONES,URINE NEGATIVE (NEGATIVE); LEUKOCYTE ESTERASE ,URINE 3+ (NEGATIVE); NITRITE, URINE POSITIVE (NEGATIVE); PH,URINE 7.5 (5.0-8.0); PROTEIN URINE NEGATIVE (NEGATIVE); UROBILINOGEN,URINE 0.2 (0.2-1.0)
--- NOTE | 2019-02-01 23:12 | NUR ---
PAGED DOCTOR PAGED DOCTOR KENYON.
--- NOTE | 2019-02-01 23:15 | NUR ---
PHONED PAGED DR CHANTALE SANCHEZ , FOR DIET CLARIFICATION .
[2019-02-01 23:18] LABS: BACTERIA,URINE MANY /HPF (None Seen); RBC,URINE 20-50 /HPF (0-3); WBC,URINE 20-50 /HPF (0-3)
[2019-02-01] MEDS: NORMAL SALINE 5 ML DISP.SYRIN IVF SCH (23:23)
[2019-02-02] VITALS: BP_SYST 136
--- NOTE | 2019-02-02 00:03 | NUR ---
FALL RISK MEASURES PATIENT HAS HISTORY OF FALLS AT HOME , BED ALARM IS ON FREQUENT MONITOR ROUNDING IMPLEMENTED & EFFECTIVE .
--- NOTE | 2019-02-02 02:12 | NUR ---
CONSULTATION PAGED/CALLED Reason for Consultation: SYNCOPE Person Who was Notified: CANDI Consulting Physician: Subha MARCUS Battery Filler Specialty: Ordering Physician: CHANTALE
--- NOTE | 2019-02-02 02:13 | NUR ---
CONSULTATION PAGED/CALLED Reason for Consultation: SYNOPE Person Who was Notified:ENRICO Consulting Physician: Landon HAWKINS Store Sales Leader Specialty: Ordering Physician: CHANTALE
--- NOTE | 2019-02-02 03:57 | NUR ---
hourly rounding patient Resting HOB elevated fall measures implemented bed to low position patient verbally Responsive .
[2019-02-02] MEDS: NORMAL SALINE 5 ML DISP.SYRIN IVF SCH ×3 (06:23→21:15)
[2019-02-02 07:21] LABS: BASOPHILS # (AUTO) 0.1 K/uL (0.0-0.2); BASOPHILS % (AUTO) 0.7 % (0.0-2.0); EOSINOPHILS # (AUTO) 0.2 K/uL (0.0-0.4); EOSINOPHILS % (AUTO) 1.4 % (0.0-4.0); HEMATOCRIT 40.6 % (36-54); HEMOGLOBIN 14.1 g/dL (14.0-18.0); LYMPHOCYTES # (AUTO) 0.6 K/uL (1.0-5.5); LYMPHOCYTES % (AUTO) 4.3 % (20.5-51.5); MEAN CORPUSCULAR HEMOGLOBIN 31 pg (27-31); MEAN CORPUSCULAR HGB CONC 35 % (32-36); MEAN CORPUSCULAR VOLUME 89 fL (79.0-98.0); MONOCYTES # (AUTO) 0.4 K/uL (0.0-1.0); MONOCYTES % (AUTO) 2.9 % (1.7-9.3); NEUTROPHILS # (AUTO) 11.8 K/uL (1.8-7.7); NEUTROPHILS % (AUTO) 90.7 % (40.0-70.0); PLATELET COUNT (AUTO) 347 K/uL (130-430); RED BLOOD CELL COUNT(AUTO) 4.59 MIL/uL (4.2-6.2); RED CELL DISTRIBUTION WIDTH 12.9 % (9.0-15.0); WHITE BLOOD COUNT (AUTO) 13.1 K/uL (4.8-10.8)
[2019-02-02 07:51] LABS: ANION GAP 11 (5-15); CALCIUM 8.9 mg/dL (8.4-11.0); CHLORIDE 98 mmol/L (98-107); CREATININE 0.58 mg/dL (0.55-1.30); GLUCOSE 69 mg/dL (70-99); POTASSIUM 3.4 mmol/L (3.5-5.1); SODIUM SERUM 132 mmol/L (136-145); UREA NITROGEN, BLOOD 15 mg/dL (8-21)
[2019-02-02 08:31] VITALS: BP_SYST 136
[2019-02-02 08:33] VITALS: BP_SYST 136
--- NOTE | 2019-02-02 09:45 | NUR ---
Nutrition Update Teo Scale 15 noted. Pt admitted for syncope, head trauma Diet: regular, soft BMI: 19.9 kg/m2 RD to follow per nutrition care standards.
[2019-02-02 11:24] VITALS: BP_SYST 129
--- NOTE | 2019-02-02 12:51 | NUR ---
received pt, resting comfortably in his bed. bed alarm on. no falls. pt with reported unpredictability overnight r/t pulling out several iv lines. pt is now compliant with poc and has not attempted to rise form bed nor has he pulled his current iv line, will cont to monitor. pt with no pain, no sob, vitals stable, afebrile. on tele. no n/v/d. awaiting md to assess pt and for orders, spoke with hospitalist who saw pt this am and alerted him to no home meds activated yet. thus no meds given this am, although home medications are updated in the EMR. MD spoke with RN about ordering an ECHO today, awaiting order to be placed and will call to schedule. pt fabrice his diet wdl.
--- NOTE | 2019-02-02 13:10 | NUR ---
pt with reported incontinence, however pt alerted RN to his need to use the toilet today. thus bedpan placed and pt utilized wdl. no falls, no attempts to pull line nor to rise form bed unassisted. pt calm and cooperative with poc, uzbek speaking. awaiting ECHO for today and still awaiting meds to be reconciled and activated for hospital use. will cont to monitor. currently sitting up in bed eating lunch, poor appetite, no s/s of coughing nor choking when eating.
[2019-02-02 16:01] VITALS: BP_SYST 139
--- NOTE | 2019-02-02 16:50 | NUR ---
PT ALERT AND CALM IN BED, FOLLOWING TURNING. NO ACUTE NEURO CHANGES TODAY. MALTESE SPEAKING. PT WITH EPISODE OF URINE INCONTINENCE THIS AFTERNOON. PT HAD ECHO COMPLETED AT BEDSIDE PER ORDERS,PENDING REPORT. NO PAIN REPORTED BY PT, DENIES CHEST PAIN, NO N/V/D, NO FALLS, PT HAS NOT BEEN IMPULSIVE NOR TRIED TO RISE FROM BED WITHOUT ASSIST. PT WITH STABLE VITAL SIGNS, AFEBRILE. AMPARO HIS LUNCH WDL. WILL CONT TO MONITOR AND ENDORSE PLAN (CT BRAIN TOMORROW? -- PER MD NOTE, NO ORDER YET PLACED) TO NOC RN AT TRANSFER OF CARE/END OF SHIFT.
--- NOTE | 2019-02-02 18:28 | NUR ---
PT ALERT AND ORIENTED X 2, INTERMITTENT CONFUSION R/T TAKING HIS TELE MONITOR OFF AND RN REPLACING X 3 THIS AFTERNOON. NOW HE IS SITTING UP IN BED IN NO DISTRESS EATING DINNER. WILL ENDORSE PLAN TO NOC RN. PT VSS AFEBRILE, NO CHANGES NEUROLOGICALLY TODAY. HE HAS LEFT HIS IV IN PLACE TODAY.
[2019-02-02 21:00] VITALS: BP_SYST 135
--- NOTE | 2019-02-02 22:15 | NUR ---
ASSIST PATIENT TO SIT UP IN BED SIPS OF WATER GIVEN UP RIGHT POSITION TOLERATED NO S/SX OF ASPIRATION RESPIRATIONS REGULAR ALSO UNLABORED .
--- NOTE | 2019-02-03 | NUR ---
Neurovascular checks noted general weakness to both upper & lower extremities motor movement is equal to both left & right hand strength FALL measures in place patient has History of falls , continue to monitor .
[2019-02-03 01:55] VITALS: BP_SYST 147
--- NOTE | 2019-02-03 04:18 | NUR ---
Hourly Rounding patient awake on and off HOB elevated verbally Responsive FALL precautions implemented call ramirez use explained to patient bed to low position .
--- NOTE | 2019-02-03 04:26 | NUR ---
Turning & Repositioning on schedule off loading with pillows tolerated kept clean & dry as needed skin dry warm chest movement symmetrical unlabored .
[2019-02-03] MEDS: NORMAL SALINE 5 ML DISP.SYRIN IVF SCH ×3 (06:17→20:16)
[2019-02-03 08:05] VITALS: BP_SYST 125
--- NOTE | 2019-02-03 08:05 | NUR ---
INITIAL ROUNDS Received pt AAOx1, non-verbal, no s/s resp distress, no c/o pain or discomfort. Neuro checks done. Plan of care for the day reviewed with pt-pt just stared at this copy writer. Pain management, skin and safety discussed-pt just stared at this copy writer. Will reinforce all teachings. Bed alarm, side rails up x3, room close to nursing station for safety. Aspiration and skin precautions in place. Call light within reach.
--- NOTE | 2019-02-03 09:58 | NUR ---
ROUNDS Pt resting quietly in bed with no s/s resp distress, no c/o pain or discomfort. pt repositioned with pillow support. All precautions remain in place.
[2019-02-03 11:21] VITALS: BP_SYST 140
--- NOTE | 2019-02-03 12:00 | NUR ---
ROUNDS Pt resting quietly in bed with no s/s resp distress, no c/o pain or discomfort. No changes. All precautions remain in place.
--- NOTE | 2019-02-03 15:25 | NUR ---
UA/MD Dr. Ochoa called and informed of +UA 02/01/19, orders for antibiotics given. also informed of pt's medication reconciliation.
[2019-02-03 15:26] VITALS: BP_SYST 134
[2019-02-03] MEDS ORDERED: amLODIPine BESYLATE 5 MG TABLET PO ONE (15:45)
[2019-02-03] MEDS ORDERED: HYDROCHLOROTHIAZIDE 12.5 MG CAPSULE (HCTZ) PO ONE (15:45)
[2019-02-03] MEDS ORDERED: LOSARTAN POTASSIUM 50 MG TABLET (COZAAR) PO ONE (15:45)
[2019-02-03] MEDS ORDERED: LACTULOSE 20 GM/30 ML UDC PO PRN (16:00)
[2019-02-03] MEDS: LEVOFLOXACIN 250 MG/D5W 50 ML IV SCH (16:32)
--- NOTE | 2019-02-03 16:45 | NUR ---
ROUNDS Pt resting quietly in bed with no s/s resp distress, no c/o pain or discomfort. Levaquin infusing well to RAC at ordered rate with no s/s infiltration to site. All precautions remain in place. Call light within reach.
--- NOTE | 2019-02-03 18:24 | NUR ---
CLOSING NOTE Pt resting quietly in bed with no s/s resp distress, no c/o pain or discomfort. Pt fed himself dinner and gave me a nice big smile. Needs met, call light within reach.
--- NOTE | 2019-02-03 19:10 | NUR ---
OPENING NOTE Bedside report received from dayshift nurse. Patient received lying in bed, awake, no s/s of acute distress noted. Breathing even and unlabored. IV site patent, no signs of infiltration or infection noted. HOB raised. Call light with patient. Bed alarm on. Bed locked and at lowest position. Will continue to monitor.
[2019-02-03 20:00] VITALS: BP_SYST 122
[2019-02-03] MEDS: DOCUSATE SODIUM 250 MG CAPSULE PO SCH (20:16)
--- NOTE | 2019-02-03 21:00 | NUR ---
ROUNDS Patient in bed, no signs of discomfort noted. Chest rise and fall even bilaterally. Soft wrist restraints in place, no signs of injuries noted. IVF infusing well. SCDs attached and operating. All needs met. Call light with patient. Bed alarm on. Will continue to monitor.
--- NOTE | 2019-02-03 21:28 | NUR ---
CONSULTATION PAGED/CALLED Reason for Consultation: UTI Person Who was Notified: [facility] Consulting Physician: NANDINI MALDONADO Ordering Physician: DR. KENYON
--- NOTE | 2019-02-03 23:00 | NUR ---
ROUNDS Patient sleeping at this time. No s/s of acute distress noted. Breathing even and unlabored. Call light with patient. Bed alarm on. Will continue to monitor.
[2019-02-04 00:44] VITALS: BP_SYST 128
--- NOTE | 2019-02-04 01:00 | NUR ---
ROUNDS Patient sleeping. No signs of discomfort noted. Chest rise and fall even bilaterally. Call light with patient. Bed alarm on. Will continue to monitor.
--- NOTE | 2019-02-04 03:00 | NUR ---
ROUNDS Patient in bed, asleep. No s/s of acute distress noted. Breathing even and unlabored. Call light with patient. Bed alarm on. Will continue to monitor.
--- NOTE | 2019-02-04 05:00 | NUR ---
ROUNDS Patient in bed sleeping. No signs of discomfort noted. Chest rise and fall even bilaterally. Call light with patient. Bed alarm on. Will continue to monitor.
[2019-02-04] MEDS: NORMAL SALINE 5 ML DISP.SYRIN IVF SCH ×3 (05:15→21:53)
--- NOTE | 2019-02-04 06:27 | NUR ---
CLOSING NOTES Patient sleeping. No s/s of acute distress noted. Breathing even and unlabored. IV site patent, no signs of infiltration or infection noted. All needs met throughout shift. Fall and safety precautions maintained throughout shift. Will continue to monitor until patient care is endorsed to oncoming dayshift nurse.
[2019-02-04 07:29] LABS: BASOPHILS # (AUTO) 0.1 K/uL (0.0-0.2); BASOPHILS % (AUTO) 1.1 % (0.0-2.0); EOSINOPHILS # (AUTO) 0.1 K/uL (0.0-0.4); EOSINOPHILS % (AUTO) 1.9 % (0.0-4.0); HEMATOCRIT 40.7 % (36-54); HEMOGLOBIN 14.1 g/dL (14.0-18.0); LYMPHOCYTES # (AUTO) 1.4 K/uL (1.0-5.5); LYMPHOCYTES % (AUTO) 22.1 % (20.5-51.5); MEAN CORPUSCULAR HEMOGLOBIN 31 pg (27-31); MEAN CORPUSCULAR HGB CONC 35 % (32-36); MEAN CORPUSCULAR VOLUME 88 fL (79.0-98.0); MONOCYTES # (AUTO) 1.3 K/uL (0.0-1.0); MONOCYTES % (AUTO) 21.2 % (1.7-9.3); NEUTROPHILS # (AUTO) 3.3 K/uL (1.8-7.7); NEUTROPHILS % (AUTO) 53.7 % (40.0-70.0); PLATELET COUNT (AUTO) 245 K/uL (130-430); WHITE BLOOD COUNT (AUTO) 6.2 K/uL (4.8-10.8)
--- NOTE | 2019-02-04 07:35 | NUR ---
Opening Notes Received patient lying comfortably in his bed, asleep, no moaning or grimacing noted. Respiration even and unlabored. Saline lock to right forearm intact. Contact isolation observed. Bed at lowest position, bed alarm on. Fall precaution observed. Call light within the reach. Will continue to monitor.
[2019-02-04 07:37] LABS: ALANINE AMINOTRANSFERASE 12 U/L (12-78); ALBUMIN 3.1 g/dL (3.4-4.8); ANION GAP 9 (5-15); ASPARTATE AMINOTRANSFERASE 13 U/L (10-37); CALCIUM 8.6 mg/dL (8.4-11.0); CHLORIDE 98 mmol/L (98-107); CREATININE 0.76 mg/dL (0.55-1.30); GLUCOSE 82 mg/dL (70-99); POTASSIUM 3.5 mmol/L (3.5-5.1); SODIUM SERUM 132 mmol/L (136-145); TOTAL BILIRUBIN 0.4 mg/dL (0.0-1.0); UREA NITROGEN, BLOOD 20 mg/dL (8-21)
[2019-02-04 08:00] VITALS: BP_SYST 140
[2019-02-04] MEDS: LEVOFLOXACIN 250 MG/D5W 50 ML IV SCH (08:42)
[2019-02-04] MEDS: LACTOBACILLUS RHAMNOSUS GG 1 CAP CAPSULE PO SCH (08:45)
[2019-02-04] MEDS: DOCUSATE SODIUM 250 MG CAPSULE PO SCH ×2 (08:45→21:52)
[2019-02-04] MEDS: HYDROCHLOROTHIAZIDE 12.5 MG CAPSULE (HCTZ) PO SCH (08:46)
[2019-02-04] MEDS: amLODIPine BESYLATE 5 MG TABLET PO SCH (08:46)
[2019-02-04] MEDS: LOSARTAN POTASSIUM 50 MG TABLET (COZAAR) PO SCH (08:47)
--- NOTE | 2019-02-04 09:00 | NUR ---
RN ROUND Patient resting well, denies any pain or discomfort at this time. No moaning or grimacing noted. Fall precaution observed. Call light within the reach.
--- NOTE | 2019-02-04 11:14 | NUR ---
RN ROUND Patient resting well, calm, asleep, no moaning or grimacing noted at this time. Call light within the reach. Fall precaution observed.
[2019-02-04 11:23] VITALS: BP_SYST 127
--- NOTE | 2019-02-04 13:08 | NUR ---
RN ROUND Contact isolation observed. Remain to be alert, awake and verbally responsive. Respiration even and unlabored. Call light within the reach.
--- NOTE | 2019-02-04 14:20 | NUR ---
Positive U/C for proteus mirabilis, pageissa Mayer Received a call from laboratory, patient positive for U/C proteus mirabilis ESBL, paged Dr. Mayer, awaiting for call back. Addendum: 02/04/19 at 1759 by Alayna Souza RN disregard, wrong time
--- NOTE | 2019-02-04 15:21 | NUR ---
RN ROUND Patient asleep, respiration even and unlabored. No moaning or grimacing noted. IV saline lock remain to be intact and patent. Contact isolation observed. Fall precaution observed. Bed alarm on, bed at lowest position. Call light within the reach.
[2019-02-04 15:22] VITALS: BP_SYST 137
--- NOTE | 2019-02-04 17:20 | NUR ---
Paged Dr. Mayer for U/C result Paged Dr. Mayer for U/C result positive for proteus mirabilis ESBL, awaiting for call back.
--- NOTE | 2019-02-04 17:37 | NUR ---
Call back from Dr. Mayer Received a call back from Dr. Mayer, notified regarding U/C result with new order to d/c Urbano, start on Meropenem 500 mg IV Q8 hours x 7 days, telephone order read back and verified, noted and carried out.
--- NOTE | 2019-02-04 18:25 | NUR ---
Dr. Ochoa Round Seen and examined by Dr. Ochoa, new orders received.
--- NOTE | 2019-02-04 18:25 | NUR ---
Closing Notes Patient remain to be alert, awake and verbally responsive. Respiration even and unlabored. Denies any pain or discomfort. Contact isolation observed. Call light within the reach. Fall precaution observed. IV line intact and patent. Will endorse to next shift.
--- NOTE | 2019-02-04 19:15 | NUR ---
OPENING NOTES Bedside report received from dayshift nurse. Patient received lying in bed, no s/s of acute distress noted. Breathing even and unlabored. IV site patent, no signs of infiltration or infection noted. Call light with patient. Bed alarm on. Bed is locked and at lowest position. Will continue to monitor.
[2019-02-04 20:00] VITALS: BP_SYST 128
--- NOTE | 2019-02-04 21:00 | NUR ---
ROUNDS/NEW IV Patient in bed, resting. No signs of discomfort noted. Chest rise and fall even bilaterally. New IV inserted at right forearm, 18 gauge. Previous IV was infiltrated, DC'ed at this time, catheter fully intact. No active bleeding noted. All needs met. Call light with patient. Bed alarm on. Will continue to monitor.
[2019-02-04] MEDS ORDERED: MEROPENEM 500 MG VIAL IV ONE (21:47)
[2019-02-04] MEDS: MEROPENEM 500 MG in NS 50 ML IV SCH (21:52)
--- NOTE | 2019-02-04 23:00 | NUR ---
ROUNDS Patient in bed sleeping at this time. No s/s of acute distress noted. Breathing even and unlabored. Call light with patient. Bed alarm on. Will continue to monitor.
--- NOTE | 2019-02-05 00:27 | NUR ---
Consultation Paged Reason for consultation: Urethral Stricture Was consult called: Y Person who was notified: Comfort Consulting Physician: Gabriel Martinez (Tino Romero is national secretary) Supplies Packer Ordering Physician: Dr. Ochoa
--- NOTE | 2019-02-05 01:00 | NUR ---
ROUNDS Patient sleeping at this time. No signs of discomfort noted. Chest rise and fall even bilaterally. Call light with patient. Bed alarm on. Will continue to monitor.
[2019-02-05 02:09] VITALS: BP_SYST 90
--- NOTE | 2019-02-05 03:00 | NUR ---
ROUNDS Patient sleeping comfortably. No s/s of acute distress noted. Breathing even and unlabored. All needs met. Call light with patient. Bed alarm on. Will continue to monitor.
--- NOTE | 2019-02-05 04:15 | NUR ---
Follow up consult called for George Ingram, ordered by Dr. Ochoa, s/w Comfort
--- NOTE | 2019-02-05 04:17 | NUR ---
Consultation Paged Reason for consultation: UTI Was consult called: Y Person who was notified: Comfort Consulting Physician: Beny Khan Lobbyist Ordering Physician: Dr. Ochoa Face sheet faxed to [phone]
--- NOTE | 2019-02-05 05:00 | NUR ---
ROUNDS/IV ANTIBIOTICS Patient in bed, INSPECTOR ALIGNING just finished with pericare. Patient tolerated well. No signs of discomfort noted. Chest rise and fall even bilaterally. IV antibiotics hung at this time, infusing well, IV site patent, no signs of infiltration or infection noted. Call light with patient. Bed alarm on. Will continue to monitor.
[2019-02-05] MEDS: MEROPENEM 500 MG in NS 50 ML IV SCH ×3 (05:03→22:10)
[2019-02-05] MEDS: NORMAL SALINE 5 ML DISP.SYRIN IVF SCH ×3 (05:03→22:10)
--- NOTE | 2019-02-05 06:33 | NUR ---
CLOSING NOTES Patient in bed, asleep at this time. No s/s of acute distress noted. Breathing even and unlabored. IV site patent, no signs of infiltration or infection noted. SCDs attached and operating. All needs met throughout shift. Fall, safety, and isolation precautions maintained throughout shift. Will continue to monitor until patient care is endorsed to oncoming dayshift nurse.
[2019-02-05 06:47] LABS: BASOPHILS # (AUTO) 0.1 K/uL (0.0-0.2); BASOPHILS % (AUTO) 0.8 % (0.0-2.0); EOSINOPHILS # (AUTO) 0.2 K/uL (0.0-0.4); EOSINOPHILS % (AUTO) 3.2 % (0.0-4.0); HEMATOCRIT 40.5 % (36-54); HEMOGLOBIN 14.3 g/dL (14.0-18.0); LYMPHOCYTES # (AUTO) 1.7 K/uL (1.0-5.5); LYMPHOCYTES % (AUTO) 26.5 % (20.5-51.5); MEAN CORPUSCULAR HEMOGLOBIN 31 pg (27-31); MEAN CORPUSCULAR HGB CONC 35 % (32-36); MEAN CORPUSCULAR VOLUME 88 fL (79.0-98.0); MONOCYTES # (AUTO) 1.1 K/uL (0.0-1.0); MONOCYTES % (AUTO) 17.3 % (1.7-9.3); NEUTROPHILS # (AUTO) 3.3 K/uL (1.8-7.7); NEUTROPHILS % (AUTO) 52.2 % (40.0-70.0); PLATELET COUNT (AUTO) 245 K/uL (130-430); RED CELL DISTRIBUTION WIDTH 12.6 % (9.0-15.0); WHITE BLOOD COUNT (AUTO) 6.4 K/uL (4.8-10.8)
--- NOTE | 2019-02-05 07:09 | NUR ---
Nutrition Update Teo Scale 15 noted. Pt admitted for Syncope, Head Trauma Diet: Regular BMI: 19.9 kg/m2 RD to follow per nutrition care standards.
[2019-02-05 07:20] LABS: ANION GAP 6 (5-15); CALCIUM 8.3 mg/dL (8.4-11.0); CHLORIDE 98 mmol/L (98-107); CREATININE 0.73 mg/dL (0.55-1.30); GLUCOSE 76 mg/dL (70-99); SODIUM SERUM 130 mmol/L (136-145); UREA NITROGEN, BLOOD 18 mg/dL (8-21)
--- NOTE | 2019-02-05 07:35 | NUR ---
Opening Notes Patient received lying comfortably in his bed, asleep. Respiration even and unlabored. No moaning or grimacing noted. Contact isolation observed. IV line intact and in place. Call light within the reach. Fall precaution observed. Will continue to monitor.
[2019-02-05 08:00] VITALS: BP_SYST 129
[2019-02-05] MEDS: DOCUSATE SODIUM 250 MG CAPSULE PO SCH ×2 (08:25→20:50)
[2019-02-05] MEDS: HYDROCHLOROTHIAZIDE 12.5 MG CAPSULE (HCTZ) PO SCH (08:26)
[2019-02-05] MEDS: LACTOBACILLUS RHAMNOSUS GG 1 CAP CAPSULE PO SCH (08:26)
[2019-02-05] MEDS: LOSARTAN POTASSIUM 50 MG TABLET (COZAAR) PO SCH (08:26)
[2019-02-05] MEDS: amLODIPine BESYLATE 5 MG TABLET PO SCH (08:27)
--- NOTE | 2019-02-05 09:30 | NUR ---
Medication administration Patient educated on medication usage and its potential side effects, patient nodded as a response, all due medication given as ordered, well toleration. Respiration remain to be even and unlabored. Contact isolation observed. Fall precaution observed. Bed alarm om, bed at lowest position. Call light within the reach.
--- NOTE | 2019-02-05 11:07 | NUR ---
PAGED DR. KENYON PER NURSE DIALED [phone] SPOKE TO LAURA
[2019-02-05 11:37] VITALS: BP_SYST 146
--- NOTE | 2019-02-05 11:50 | NUR ---
Dr. Anamaria Mayer notified of low potassium level Dr. Francisco Javier Mayer at the unit, notified regarding low potassium level with new order for KCL 40 MEQ PO x 1 noted and carried out.
--- NOTE | 2019-02-05 11:55 | NUR ---
Dr. ROLAND round Seen and examined by Dr. Roland, will follow-up for any new order.
[2019-02-05] MEDS ORDERED: POTASSIUM CHLORIDE 20 MEQ TAB.PRT.SR PO ONE (12:15)
--- NOTE | 2019-02-05 12:20 | NUR ---
Discharge Planning: DCP faxed to [facility] [place] (f [phone] p [phone]) DCP to follow up
--- NOTE | 2019-02-05 13:00 | NUR ---
Dr. Ochoa Round Seen and examined by MD, will follow-up for any orders. Patient remain to be alert, awake and verbally responsive. Denies any pain or discomfort at this time. Call light within the reach.
--- NOTE | 2019-02-05 13:56 | NUR ---
Dietitian Recommendations *Recommend Mechanical soft chopped diet w/ Ensure Enlive TID. ONS will provide additional 1050 kcal and 60 gm protein daily. Please see Nutritional Assessment for details. LEXI, RD
--- NOTE | 2019-02-05 15:00 | NUR ---
RN ROUND Patient remain to be alert, awake and verbally responsive. Denies any pain or discomfort at this time. Contact isolation observed. Call light within the reach.
[2019-02-05 15:28] VITALS: BP_SYST 124
--- NOTE | 2019-02-05 16:10 | NUR ---
Airplane Pilot Chief/Case Management VEGETABLE II FARMWORKER phoned patient's conservator, Jennifer Najera, and spoke with covering person [place]. Notified her of admission and possible discharge to either LTAC or return to SNF. She stated either is fine, just notify conservator upon discharge. Papers only need to be signed for procedures.
--- NOTE | 2019-02-05 17:20 | NUR ---
Phone call from son Kvng Received a call from sonKvng updated on patient's condition, will notify continuous pillowcase cutter to call him regarding discharge plan, son verbalized understanding.
--- NOTE | 2019-02-05 18:45 | NUR ---
Closing Notes Patient remain to be alert, awake and verbally responsive. Denies any pain or discomfort at this time. Respiration even and unlabored. IV in place and intact. Contact isolation observed for ESBL urine. Fall precaution observed. Bed alarm on, bed at lowest position. Call light within the reach. Will endorse to the next shift.
--- NOTE | 2019-02-05 19:25 | NUR ---
initial notes: pt is on bed. awake,alert, know jis name and birthday. confused. no pain. no distress. no sob. pt pull out his iv lock. pt is on contact isolation due esbl of urine. needs attended. side rails up. low bed position and alarm on. maintained on isolation. call light in reach. will monitor.
[2019-02-05 20:27] VITALS: BP_SYST 128
--- NOTE | 2019-02-05 21:00 | NUR ---
pt is incontinent and soiled with bm and urine. clean and change pt. change new chux and bed linen. start new iv site to right fore arm gauge 18- good blood return, done aseptically and secure well. needs attended. joaquin light in reach. maintained on isolation.
--- NOTE | 2019-02-05 22:00 | NUR ---
sleeping on his side. breathing ok. no distress. stable. maintained on isolation.
--- NOTE | 2019-02-06 | NUR ---
sleeping. no pain. no sob. no distress.stable. bed alarm on.
[2019-02-06 01:37] VITALS: BP_SYST 120
--- NOTE | 2019-02-06 02:10 | NUR ---
sleeping on side. no sob. stable, bed alarm. maintained isolation. iv lock intact ad patent. bed alarm on. will monitor.
--- NOTE | 2019-02-06 05:02 | NUR ---
sleeping on his side. stable. no pain. no distress. contact isolation. safety on. will monitor.
[2019-02-06] MEDS: MEROPENEM 500 MG in NS 50 ML IV SCH ×3 (05:34→21:06)
[2019-02-06] MEDS: NORMAL SALINE 5 ML DISP.SYRIN IVF SCH ×3 (05:34→21:11)
--- NOTE | 2019-02-06 06:00 | NUR ---
sleeping. no pain. no sob. no distress.stable. iv site intact and patent. maintained on isolation. bed alarm on.
--- NOTE | 2019-02-06 07:27 | NUR ---
closing: sleeping on his side. no pain. no sob. no distress.stable. iv site intact and patent. maintained on isolation.needs attended the whole shift. bed alarm on. bedside report given to am rn.
--- NOTE | 2019-02-06 08:00 | NUR ---
AM ROUNDS Received patient from nursing education specialist nurse. Patient is sleep. No signs of respiratory distess. No SOB, IV in the right forearm infusing well. Isolation Precaution in place. Vital signs taken and recorded. Will continue to monitor patient. Bed at low position. Safety Precaution in place.
[2019-02-06 08:07] VITALS: BP_SYST 115
[2019-02-06] MEDS: LACTOBACILLUS RHAMNOSUS GG 1 CAP CAPSULE PO SCH (09:53)
[2019-02-06] MEDS: amLODIPine BESYLATE 5 MG TABLET PO SCH (09:56)
[2019-02-06] MEDS: DOCUSATE SODIUM 250 MG CAPSULE PO SCH ×2 (09:56→21:05)
[2019-02-06] MEDS: HYDROCHLOROTHIAZIDE 12.5 MG CAPSULE (HCTZ) PO SCH (09:57)
[2019-02-06] MEDS: LOSARTAN POTASSIUM 50 MG TABLET (COZAAR) PO SCH (10:08)
--- NOTE | 2019-02-06 10:15 | NUR ---
RN ROUNDS Patient is awake in bed. No signs of respiratory distress. No SOB. Isolation Precaution in place. Will continue to monitor patient.
[2019-02-06 12:37] VITALS: BP_SYST 136
[2019-02-06 15:49] VITALS: BP_SYST 108
--- NOTE | 2019-02-06 15:52 | NUR ---
DISCHARGE PLAN Receive an order form Dr. Ochoa to discharge patient.
--- NOTE | 2019-02-06 15:55 | NUR ---
TRANSFER TO [facility] Patient will be transfer to [facility] as soon as room is available.
--- NOTE | 2019-02-06 18:39 | NUR ---
CLOSING NOTES Patient is alert and oriented. Heplock in the right forearm. Dinner was served. Awaiting call from Ken Fisher for patients room availability. Will endorsed to rn night for continuity of care.
--- NOTE | 2019-02-06 18:55 | NUR ---
GEOVANNA ALLEN RECIVED CALL FROM GEOVANNA THAT PT HAS A BED AT [facility]. ROOM 108B FOR REPORT [phone] PT CAN GO BLS AND TO SEND AFTER [id number]
--- NOTE | 2019-02-06 19:10 | NUR ---
OPENING NOTE RECEIVED CARE OF PT AND SBAR REPORT. PT IS AWAKE AND ALERT, NO S/S OF ACUTE DISTRESS, BREATHING IS UNLABORED TO ROOM AIR. POC DISCUSSED WITH PT, PT CONFUSED AND DID NOT VERBALIZE UNDERSTANDING. VSS. PT ORIENTED TO USE OF CALL LIGHT AND ENCOURAGED TO CALL FOR ANY ASSISTANCE. CONTACT PRECAUTIONS ARE IN PLACE. SAFETY AND FALL PRECAUTIONS ARE IN PLACE: BED IS LOCKED IN LOWEST POSITION, SIDE RAILS UPX2, BED ALARM ON, CALL LIGHT WITH PT.
--- NOTE | 2019-02-06 19:16 | NUR ---
[facility] CALLED AND SPOKE WITH JOEL AT [facility] AND [facility] IS SET UP FOR 2229 GOING BLS
--- NOTE | 2019-02-06 20:50 | NUR ---
REPORT GIVEN TO ACCEPTING RN, HUYEN, AT [facility]. PER HUYEN, PT IS GOING TO ROOM 304A.
--- NOTE | 2019-02-06 22:25 | NUR ---
DISCHARGE PT DISCHARGED WITH [facility] FOR BLS TRANSFER TO [facility]. VSS. Addendum: 02/07/19 at 0546 by Lori Gates RN ATTEMPTED TO CALL PUBLIC GUARDIAN LARISA BOO AT [phone] TO ALERT HER THAT PT HAD LEFT VIA AMBULANCE TO [facility] REQUESTED. MESSAGE LEFT ON VOICEMAIL.
== END 2019-02-06 22:25 | DRG 312 ==
LOC: SED 18:41 → STU 21:51
PROVIDERS: ADMIT Internal Medicine; ATTEND Internal Medicine
DX: R55 Syncope and collapse (principal); N39.0 Urinary tract infection, site not specified; E87.1 Hypo-osmolality and hyponatremia; S09.90XA Unspecified injury of head, initial encounter; B96.4 Proteus (mirabilis) (morganii) as the cause of diseases classified elsewhere; F03.90 Unspecified dementia, unspecified severity, without behavioral disturbance, psychotic disturbance, mood disturbance, and anxiety; I11.9 Hypertensive heart disease without heart failure; I48.91 Unspecified atrial fibrillation; N35.919 Unspecified urethral stricture, male, unspecified site; Z16.12 Extended spectrum beta lactamase (ESBL) resistance; I25.10 Atherosclerotic heart disease of native coronary artery without angina pectoris; R13.10 Dysphagia, unspecified; R26.9 Unspecified abnormalities of gait and mobility; N40.0 Benign prostatic hyperplasia without lower urinary tract symptoms; W18.39XA Other fall on same level, initial encounter; Z79.899 Other long term (current) drug therapy; Y93.89 Activity, other specified; Y92.89 Other specified places as the place of occurrence of the external cause; Y99.8 Other external cause status
CPT/HCPCS: 36415; 70450-TC; 71045; 72170-TC; 80048; 80053; 81000-TC; 82140-TC; 82550-TC; 83605; 84443-TC; 84484; 85025; 85610-TC; 85730-TC; 87040-TC; 87081; 87086; 87186-TC; 93005; 93306; 95816; 99285; G0378; J1956; J2185